=== PATIENT | male | born 1940 | race Caucasian/White ===

== ENCOUNTER 2016-10-22 21:05 | Inpatient (IN) | payer MEDICARE, OTHER ==
--- NOTE | ~2016-10-22 | HP ---
History And Physical [place] [id number] [facility] [place]. [address] NAME: TAILA VYAS : 42 STATUS : ADM IN PAT#: [id number] AGE: 76 ADM/REG DATE : 10/22/16 MR#: [id number] REPORT SERV DATE: 10/23/16 DICTATED BY: GIBSON HUTTON DATE: 10/22/16 REPORT STATUS : Draft TRANSCRIBED BY: MODL DATE: 10/22/16 DATE OF ADMISSION: 10/22/2016 CHIEF COMPLAINT: Increased confusion. HISTORY OF PRESENT ILLNESS: The patient is a 76-year-old male with past medical history of alcoholic cirrhosis, has quit alcohol over 10 years ago, had been under the care of Dr. Girma Carter, who presents after having increased confusion today per . Symptoms have been intermittent, but mild. Family knows that when these symptoms start to happen, she is supposed to give him extra lactulose. She provided these and did have resultant three to four bowel movements today. The symptoms are still not resolved. The patient was seen by Dr. Carter approximately a week ago and was told to have slightly worsening kidney numbers. The patient reports that over the last couple of days, he has also had decreased ability to urinate and has had difficulty, thought he had a urine infection. Did have mild pain with abdomen pressure. No radiating symptoms, but did have generalized weakness, malaise, increased swelling diffusely, and has had a hard time with urine output despite being compliant with his medications. The patient has not had any nausea or vomiting. Has still had good bowel movements. No wheezing. There are no worsening symptoms, but no relieving symptoms. The patient did have Chi placed in the emergency room and had almost over a liter of urine output immediately. The patient did have a fall earlier today due to increased weakness, but otherwise feels slightly better after having Chi placed. REVIEW OF SYSTEMS: GENERAL: Increase weakness, generalized, but no fever, chills, or dizziness. EYES: No eye pain or visual changes. ENT: No sore throat or sinus drainage. NEURO: No headaches, but did have mild increased confusion with mental status changes, not quite at baseline yet, but is improving. SKIN: No rashes. Does have chronic bruising. RESPIRATORY: No shortness of breath or dyspnea on exertion or cough. CV: No chest pain, palpitations, or tachycardia. GI: No nausea, vomiting, or diarrhea, but did have mild abdominal pain with hernia. : Has had difficulty urinating and retention. MUSCULOSKELETAL: No myalgias or arthralgias above baseline. ENDO: Does have fatigue, but no polyuria or polydipsia. HEME: No bleeding or bruising. IMMUNOLOGIC: No rhinorrhea. PSYCH: No anxiety, but does have confusion. PAST MEDICAL HISTORY: Alcoholic cirrhosis with portal hypertension, esophageal varices, CKD stage 3, hypertension, [id number] diabetes type 2, cholelithiasis, active tobacco use history, remote history of Marcus's gangrene. PAST SURGICAL HISTORY: Multiple surgeries for Marcus's, bilateral hernia repair surgeries. ALLERGIES: NO KNOWN DRUG ALLERGIES. History And Physical [address] [address] NAME: TALIA VYAS : 41 STATUS : ADM IN [facility]#: [id number] AGE: 76 ADM/REG DATE : 10/22/16 MR#: [id number] REPORT SERV DATE: 10/23/16 DICTATED BY: GIBSON HUTTON DATE: 10/22/16 REPORT STATUS : Draft TRANSCRIBED BY: STACEY DATE: 10/22/16 SOCIAL HISTORY: Smoker. Quit alcohol 10 years ago. No illicits. FAMILY HISTORY: Of stroke, coronary artery disease in siblings with stroke. HOME MEDICATIONS: Atenolol, vitamin D3, Lasix, Neurontin, Amaryl, lactulose, Flagyl, Protonix, Aldactone, vitamin E, magnesium, and potassium. LABORATORY DATA: UDS negative. Urinalysis, negative leukocyte esterase and nitrites. Negative protein. Ammonia 40, lactate 1.9. CT abdomen and pelvis noted to have moderate large 9.5 cm diameter umbilical hernia sac containing infiltrated fat cysts and inflammatory process within the hernia sac, although relatively broad abdominal wall fascial defect measuring 3 cm diameter. No gia incarceration pattern identified. Liver cirrhosis pattern. Cholelithiasis. Splenomegaly. Small volume abdominal ascites. Small left pleural effusion. Cardiomegaly. Mild diverticulosis pattern. Heme profile; WBC 10.3, H and H 11 and 32.5, platelets 74. INR 1.4, procalcitonin 0.11, sodium 142, potassium 4.7, chloride 105, carbon dioxide 26, BUN and creatinine 46 and 1.88, glucose 105, calcium 9.0, albumin 3, lipase 542, troponin negative. Tylenol level less than 2, salicylate 1.7, and alcohol less than 10. PHYSICAL EXAMINATION: VITAL SIGNS: The patient's blood pressure 156/60, temperature 97.8, pulse 84, respirations 13, O2 saturations 99%. GENERAL: Obese, elderly, chronically ill appearing. EYES: EOMI. ENT: Moist mucous membranes. RESPIRATORY: Clear to auscultation. No wheezes. CV: Regular rate. No rubs. Mild systolic ejection murmur. Bilateral edema. GI: Soft, but positive ascites with positive fluid wave. Does have mild tenderness to palpation with umbilical hernia, but reducible defect. Positive bowel sounds. : Chi placed with 1 L of urine output immediately. MUSCULOSKELETAL: Moves all extremities. Does have bruising on multiple skin sites. SKIN: Bruising on hands bilaterally. Otherwise, warm and dry. HEME: Bruising on hands and pressure sites. NEURO: Alert and oriented to person, place, time, and situation, but does have occasional stares and not quite at baseline per family with recollection of different events. PSYCH: Pleasant, calm, cooperative. Appropriate mood and affect. ASSESSMENT AND PLAN: 1. Acute encephalopathy, hepatic versus uremic. 2. Acute kidney injury with chronic kidney disease. 3. Diabetes type 2. 4. Hypertension. 5. Cirrhosis with caput and ascites. 6. Reflux. 7. Umbilical hernia. History And Physical [address] [address] NAME: TALIA VYAS : 42 STATUS : ADM IN [facility]#: [id number] AGE: 76 ADM/REG DATE : 10/22/16 MR#: [id number] REPORT SERV DATE: 10/23/16 DICTATED BY: GIBSON HUTTON DATE: 10/22/16 REPORT STATUS : Draft TRANSCRIBED BY: MODL DATE: 10/22/16 PLAN: 1. For acute encephalopathy, hepatic versus uremic, the patient has had multiple bowel movements with lactulose that was given at home. Ammonia at 40. We will monitor ammonia. The patient did have Chi placed with significant amount of urine retention approximately 1 L. May have uremic component, which was causing acute encephalopathy. We will need to follow. Monitor fluids, I's and O's. BUN and creatinine. We will monitor a.m. BMP and CMP. 2. CLAUDY with CKD likely secondary to urinary retention. Chi placed with greater than a liter retention. Creatinine reported to be worsening in clinic. We will try to obtain these records. May require Nephrology followup if worsening creatinine function or may require Urology evaluation if BPH symptoms of retention. May require a Chi trial. We will continue Chi overnight. Reassess in a.m. 3. Diabetes type 2. Hold Amaryl with CKD and continue sliding scale insulin. 4. Hypertension, on atenolol. Monitor. 5. Cirrhosis with caput and ascites. Check lactate, currently within normal limits. Has seen Dr. Carter last week. Continue medications and diuresis medications. 6. Reflux. PPI. 7. Umbilical hernia. Not currently incarcerated and reducible defect. Also seen on CT. Has had history of surgeries for hernias. We will need to continue to monitor. Repeat lactate in a.m. All questions were answered with the patient and family at bedside. Anticipate greater than two midnight inpatient stay. DDN/MODL Gibson Hutton MD / [id number] CC: Meme Schaeffer D.O.
--- NOTE | ~2016-10-22 | DS ---
Discharge Summary [facility] [address] [place]. [address] NAME: TALIA VYAS : 42 STATUS : DIS IN PAT#: [id number] AGE: 76 ADM/REG DATE : 10/22/16 MR#: [id number] REPORT SERV DATE: 10/28/16 DICTATED BY: KODY PERALTA DATE: 10/27/16 REPORT STATUS : Draft TRANSCRIBED BY: MODL DATE: 10/27/16 ADMISSION DATE: 10/22/2016 DISCHARGE DATE: 10/27/2016 DISCHARGE DIAGNOSES: Include: 1. Acute hepatic encephalopathy, resolving. 2. Acute kidney injury on chronic kidney disease, stage III. Most recent creatinine 2.08. 3. Alcoholic cirrhosis. 4. Chronic anemia. Most recent hemoglobin 9.3 and hematocrit 27.3. 5. Urinary tract infection, Klebsiella and Escherichia coli. 6. Acute urinary retention, that has resolved. 7. Hyperkalemia. Most recent potassium 5.3. 8. Diabetes type 2. DISCHARGE MEDICATIONS: As follows: Atenolol 25 mg daily, vitamin D3 1000 units daily, Neurontin 600 mg daily, lactulose 45 mL p.o. twice a day, Protonix 40 mg daily, Xifaxan 550 mg twice a day, Flomax 0.4 mg daily, vitamin E 400 units daily, torsemide 20 mg daily, Flagyl 250 mg twice a day, magnesium 500 mg daily, potassium supplementation one daily, and Ceftin 500 mg twice a day for two more days. HISTORY OF PRESENT ILLNESS: A very pleasant, 76-year-old male, who presented with worsening confusion and having fallen at home. Please see initial H and P of Dr. Ronni Pereyra. This patient admitted to the Hospitalist Service for further evaluation and treatment. Initially, the patient had significant urinary retention and a Chi catheter was placed with immediate relief of 1 liter of urine, and lab work was ordered and followed. Consult was placed to Dr. Girma Carter during this admission as well. HOSPITAL COURSE: I began seeing the patient on 10/23/2016 where his ammonia had began to climb up to 83, his lactulose was increased, and given his urinary retention, Flomax was added to his regimen and his Chi catheter was able to be discontinued. He was wheezing quite heavily, but DuoNeb therapy helped to alleviate this and his breathing improved dramatically. His ammonia did again climbed to 123. His lactulose was increased by Dr. Girma Carter and Xifaxan was added. His potassium was somewhat elevated and spironolactone was placed on hold and it has began to trend downward. He did have some acute kidney injury. Given the fact that his albumin is quite low, the Lasix was discontinued and he was placed on torsemide once a day instead. Physical therapy saw the patient as he began to improve in the mental status and he did quite well, able to mobilize in the room, and they recommended home health and home physical therapy. His ammonia plateaued and trended downward. His creatinine plateaued and trended downward as well, and after discussion with Dr. Girma Carter, he was felt safe for discharge home on 10/27/2016 with home health and home physical therapy. He will recheck a BMP in two to three days. He will follow up Dr. Girma Carter next week and complete antibiotics. The patient and family wanted to continue Xifaxan and will try to get this approved, so prescription was written and have instructed him to take no more Amaryl and no more Aldactone at home and to follow up with his primary care as well. [facility] will see the patient. They are in agreement with this plan going forward. Questions were answered at bedside. Discharge Summary [address] [address] NAME: TALIA VYAS : 42 STATUS : DIS IN PAT#: [id number] AGE: 76 ADM/REG DATE : 10/22/16 MR#: [id number] REPORT SERV DATE: 10/28/16 DICTATED BY: KODY PERALTA DATE: 10/27/16 REPORT STATUS : Draft TRANSCRIBED BY: MODL DATE: 10/27/16 Please note, greater 30 minutes was spent on this discharge for medication teaching, followup planning, and further disposition. ANJANA/CHAYITOL Kody Peralta NP / [id number] CC: MD Meme Santos II, D.O.
--- NOTE | ~2016-10-22 | CN ---
Consultation Report [facility] [address] [facility] [place]. [address] NAME: TALIA RICKETTS : 42 STATUS : ADM IN PAT#: [id number] AGE: 76 ADM/REG DATE : 10/22/16 MR#: [id number] REPORT SERV DATE: 10/24/16 DICTATED BY: GIRMA CARTER DATE: 10/24/16 REPORT STATUS : Draft TRANSCRIBED BY: MODL DATE: 10/24/16 CONSULTATION DATE OF CONSULTATION: 10/24/2016 REFERRING PHYSICIAN: Ronni Pereyra MD. REASON: Cirrhosis of liver and hepatic encephalopathy. HISTORY: Mr. Ricketts is a 76-year-old pleasant male, known to me for a long time. He has alcoholic cirrhosis of liver, slowly progressing. Has complications in the form of ascites, which is relatively stable and controlled on diuretics. Has chronic kidney disease due to diuretics with cirrhosis of liver though it has been stable for some time, has hepatic encephalopathy, fluctuating mental status. We have been able to manage to keep him out of the hospital for some time on lactulose only along with Flagyl only once a day. We have tried multiple times Xifaxan, was not approved by insurance. He has been rejected for patient assistance. He usually gets about three to four bowel movements daily on lactulose three to four times a day. He was brought in the hospital the day before yesterday because of altered mental status. found him next to the bathroom lying down and confused, was unable to give him any lactulose, called EMS. He has chronic encephalopathy with intermittent confusion and usually gives him extra lactulose and that helps him and that is how we have been able to manage to keep him out. He is not on any narcotics, is not on any benzodiazepines. At 76, he is definitely not a candidate for liver transplantation, and the patient and family are aware of that situation. They are also aware of prognosis. We had discussion multiple times about this situation and the patient has expressed his wishes of not to provide any prolonged life support. Since admission, he has been on lactulose, had only one bowel movement yesterday. Per daughter, he is really, really weak, not able to get up at all. She is concerned about the disposition. She wants to take him home with home health if it is possible. This morning when I came, the patient is awake. He was able to engage in conversation with me well, but on direct question, it was difficult to get details of meaningful discussion about overall situation. PAST MEDICAL HISTORY: Alcoholic cirrhosis with portal hypertension, esophageal varices, chronic kidney disease, hypertension, diabetes, cholelithiasis, hepatic encephalopathy, ascites, umbilical hernia. PAST SURGICAL HISTORY: Multiple surgeries for Marcus gangrene, bilateral hernia repair. ALLERGIES TO MEDICINE: None. Consultation Report [address] [place]. [address] NAME: TALIA RICKETTS : 42 STATUS : ADM IN PAT#: [id number] AGE: 76 ADM/REG DATE : 10/22/16 MR#: [id number] REPORT SERV DATE: 10/24/16 DICTATED BY: GIRMA CARTER DATE: 10/24/16 REPORT STATUS : Draft TRANSCRIBED BY: STACEY DATE: 10/24/16 MEDICATIONS AT HOME: Atenolol, vitamin D, Lasix, Neurontin, Amaryl, lactulose, Flagyl, Protonix, Aldactone, vitamin E, magnesium, and potassium. REVIEW OF SYSTEMS: It was very difficult to obtain review of systems, but has nausea, been restless all night. Has been having leg cramps. Memory significantly sluggish and intermittent confusion. Denies vomiting. Has generalized abdominal pain, but it is not new. It has been intermittent. Denies fever. Again, review of systems was obtained from the family. The patient was not able to engage in detailed conversation. PHYSICAL EXAMINATION: GENERAL: Well developed, well nourished, obese, awake, able to answer direct questions, not in distress. VITAL SIGNS: Blood pressure 137/61, pulse 54, respirations 18, temperature 98.4, pulse ox 96% to 99% on room air. EYES: Has pallor. Has mild icterus. Pupils equally round and reactive. NECK: Supple. No JVD. LUNGS: Bilateral decreased air entry. Bibasilar rales. Mild expiratory wheezing. HEART: S1, S2 present. No murmur appreciated. No gallop appreciated. ABDOMEN: Distended, soft. Moderate ascites. Nontender. No signs of peritonitis. Has umbilical hernia, which is reducible, noncomplicated. EXTREMITIES: Bilateral 2+ edema. Decreased peripheral pulses. No signs of DVT. NEURO: No focal deficits. Cranial nerves are grossly intact. Speech is slow, but normal. MUSCULOSKELETAL: Gait and station did not evaluate. Does not have clubbing or cyanosis. LABORATORY DATA: Sodium 142, potassium 5.1, chloride 108, bicarb 25, BUN 46, creatinine 1.75, albumin 2.6. Total bilirubin 2.2. Alkaline phosphatase and transaminases are normal. Lipase 983. Ferritin 207. Alcohol less than 10. Salicylate 1.7. Tylenol less than 2. Ammonia 123. WBC 6.7, hemoglobin 8.9, platelets 63. INR 1.4. IMPRESSION: 1. 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 Only on lactulose. Could not get Zyprexa as an outpatient. 2. Alcoholic cirrhosis of liver. MELD score is 19. Gradually getting worse. Not a liver transplant candidate. Expect to progress. 3. Chronic kidney disease, stage III. Creatinine has been stable. Contributed predominantly due to diuretics with underlying diabetes and hypertensive renal disease, though creatinine has been stable on current dose of diuretics. We were able to keep his ascites stable. Has not had paracentesis for a long time. 4. Ascites, managed by diuretics, large volume paracentesis with albumin as needed. 5. Umbilical hernia, reducible, noncomplicated. Not a candidate of surgery. 6. Debilitation due to age and progressive liver disease. 7. Type 2 diabetes. 8. Pancreatitis based on lipase. The patient is asymptomatic. Likely related to ascites. Consultation Report [address] [address] NAME: TALIA RICKETTS : 42 STATUS : ADM IN [facility]#: [id number] AGE: 76 ADM/REG DATE : 10/22/16 MR#: [id number] REPORT SERV DATE: 10/24/16 DICTATED BY: GIRMA CARTER DATE: 10/24/16 REPORT STATUS : Draft TRANSCRIBED BY: MODL DATE: 10/24/16 Maybe, loop diuretics playing the role, need to monitor. SUGGESTIONS: 1. Increase lactulose to 45 mL three times a day. 2. Add Xifaxan 550 twice a day and hold Flagyl until discharge. At the time of discharge, switched from Xifaxan to Flagyl. 3. As mentioned earlier, not a candidate for liver transplant. 4. Continue diuretics as long as creatinine is under 2. If it gets worse, we will have to hold creatinine and consider a PleurX catheter that time. 5. PT/OT evaluation and treatment. 6. Out of bed in the chair daily. 7. Discontinue Chi catheter if possible. 8. Discussed at length with the patient's daughter and about current condition and further management. Informed them he is not a liver transplant candidate. Expect to have readmission sooner or later either due to encephalopathy, fall, or even acute kidney injury or infection. Daughter agrees that if the patient comes back, we will call hospice at that time, and family also agrees about DNR status, which I have discussed with him in the office, and he mentioned that he is not in a state of making decision at this point, but with my discussion in the clinic and per family's preference, I have signed the paperwork for the DNR. 9. Supportive care. Check lipase regularly. Start him on the diet as tolerated. Call me if you have any questions or concerns. I am out of town for the weekend. I am available by the phone. My cell number is [phone]. CP/MODL Girma Carter M.D. / [id number] CC: Jarrett Carlos D.O.
[~2016-10-22 21:05] MED LIST: AMARYL1 MG PO; ATEN25 PO; AUG500 PO; CONSTULOSE PO; COQ10100 MG OR; ENULOSE PO; FLAGYL250 MG PO; KLOR-CON 1010 MEQ PO; L20 PO; L40 PO; L80 PO; LEVAQUIN5T PO; MAGNESIUM OTC PO; NEUR300 PO; NEUR600 PO; NEXIUM20 M1 PO; NICODERM C21 MG/241 TOP; OTC NASAL SPRAY; PRILOSEC40 MG PO; PRIN20 PO; PROBIOTIC PO; PROTONIX PO; SPIRO25 PO; SPIRO50 PO; TRADJENTA PO; VITAMIN D31000 UNIT PO; VITE PO
[2016-10-22 21:22] LABS: ASCORBIC ACID (UR NOT ORDER) NEG (NEG); BILIRUBIN, URINE NEGATIVE (NEG); ER URINALYSIS TAT 0 Hrs 13 Mins; KETONE, URINE NEGATIVE (NEG); LEUKOCYTE ESTERASE(NOT OR NEG (NEG); NITRITE (URINE) NEG (NEG); WBC (NOT ORDERED) (RFLEX) 1 (0-5)
[2016-10-22 21:24] LABS: BASOPHILS 0.1 %; BASOPHILS ABSOLUTE 0.01 10/3/uL (0.0-0.16); EOSINOPHILS 0.1 %; EOSINOPHILS ABSOLUTE 0.01 10/3/uL (0.0-0.53); IMMATURE GRANULOCYTES 0.3 %; IMMATURE GRANULOCYTES ABSOLUTE 0.03 10/3/uL (0.0-0.11); LYMPHOCYTES 7.1 %; LYMPHOCYTES ABSOLUTE 0.73 10/3/uL (0.67-4.30); MEAN CORPUS HGB CONC 33.8 g/dL (32.0-36.0); MEAN CORPUSCULAR HEMOGLOB 31.5 pg (26.0-34.0); MEAN CORPUSCULAR VOLUME 93.1 fL (80-100); MEAN PLATELET VOLUME 10.7 fL (9.2-13.0); MONOCYTES 7.4 %; MONOCYTES ABSOLUTE 0.76 10/3/uL (0.21-1.20); NEUTROPHILS ABSOLUTE 8.79 10/3/uL (2.02-8.40); PLATELET COUNT 74 10/3/uL (150-400); RBC DISTRIBUTION WIDTH 15.7 % (12.0-16.0)
[2016-10-22 21:26] LABS: HEMATOCRIT 32.5 % (40.0-51.0); MANUAL DIFF NO %; RED CELL COUNT 3.49 10/6/uL (4.7-6.1); WHITE BLOOD CELLS 10.3 10/3/uL (4.5-10.5)
[2016-10-22 21:28] LABS: INTERNATIONAL NORMAL RATI 1.4 UNITS (-); PROTIME (NOT ORD) 17.4 SEC (12.0-14.5)
[2016-10-22 21:33] LABS: AMPHETAMINES (NOT ORD) NEG (NEG); BARBITURATES (NOT ORDERED NEG (NEG); BENZODIAZEPINES (NOT ORD) NEG (NEG); CANNABINOIDS (THC) NEG (NEG); COCAINE (NOT ORDERED) NEG (NEG); OPIATES NEG (NEG); PHENCYCLIDINE(PCP) NEG (NEG); TRICYCLICS NEG (NEG)
[2016-10-22 21:35] LABS: LACTATE 1.9 MMOL/L (0.3-2.4)
[2016-10-22 21:35] LABS: CHEST PAIN PROFILE TAT 0 Hrs 26 Mins; CHLORIDE, SERUM 105 MMOL/L (96-112); CO2 (CARBON DIOXIDE) 26 MMOL/L (24-34); CREATININE 1.88 MG/DL (0.70-1.30); GFR AFRICAN AMERICAN 40 ML/MIN (>=60); GFR NON AFRICAN AMERICAN 34 ML/MIN (>=60); POTASSIUM, SERUM 4.7 MMOL/L (3.5-5.3); SGOT(AST) 29 U/L (5-40); SGPT(ALT) 34 U/L (5-65); SODIUM, SERUM 142 MMOL/L (135-148); TOTAL BILIRUBIN 2.2 MG/DL (0-1.2); TROPONIN I <0.02 NG/ML (<0.05)
[2016-10-22 21:36] LABS: ALKALINE PHOSPHATASE 120 U/L (45-117); BUN (BLOOD UREA NITROGEN) 46 MG/DL (6-23); DIRECT BILIRUBIN 0.9 MG/DL (0.0-0.4); GLUCOSE, SERUM 105 MG/DL (60-99); INDIRECT BILIRUBIN(NOT ORDER) 1.3 MG/DL (0.1-0.9); TOTAL PROTEIN 6.9 G/DL (6.0-8.5)
[2016-10-22 21:37] LABS: ACETAMINOPHEN LEVEL (TYLENOL) < 2.0 MCG/ML (10.0-20.0); ALCOHOL < 10 MG/DL (0); SALICYLATE 1.7 MG/DL (-)
[2016-10-22 22:03] LABS: ER DIFF TAT 0 Hrs 54 Mins; LYMPHOCYTES 6 %; LYMPHOCYTES ABSOLUTE (CALC) 0.62 10/3/uL (0.67-4.30); MONOCYTES 2 %; MONOCYTES ABSOLUTE (CALC) 0.21 10/3/uL (0.21-1.20); NEUTROPHILS ABSOLUTE (CALC) 9.48 10/3/uL (2.02-8.40); SEGMENTED NEUTROPHIL (0) 92 %; TOTAL NUCLEATED CELLS 100
[2016-10-22 22:07] LABS: PLATELET ESTIMATE DEC (ADEQUATE)
[2016-10-22] MEDS ORDERED: ATEN25 PO (22:18)
[2016-10-22] MEDS ORDERED: AMARYL1 MG PO (22:20)
[2016-10-22] MEDS ORDERED: CONSTULOSE PO (22:20)
[2016-10-22] MEDS ORDERED: L40 PO (22:21)
[2016-10-22] MEDS ORDERED: SPIR100 PO (22:21)
[2016-10-22] MEDS ORDERED: FLAGYL250 MG PO (22:21)
[2016-10-22] MEDS ORDERED: MAGNESIUM 500 MG PO (22:23)
[2016-10-22] MEDS ORDERED: NEUR600 PO (22:23)
[2016-10-22] MEDS ORDERED: PROTONIX PO (22:23)
[2016-10-22] MEDS ORDERED: VITE PO (22:24)
[2016-10-22] MEDS ORDERED: POTASSIUM OTC PO (22:24)
[2016-10-22] MEDS ORDERED: VITAMIN D31000 UNIT PO (22:24)
[2016-10-22 22:27] LABS: PROCALCITONIN 0.11 ng/mL (<0.5)
[2016-10-23 07:11] LABS: BASOPHILS 0 %; EOSINOPHILS 0.1 %; EOSINOPHILS ABSOLUTE 0.01 10/3/uL (0.0-0.53); HEMOGLOBIN 9.4 g/dL (13.6-17.8); IMMATURE GRANULOCYTES 0.3 %; IMMATURE GRANULOCYTES ABSOLUTE 0.03 10/3/uL (0.0-0.11); LYMPHOCYTES 5.4 %; LYMPHOCYTES ABSOLUTE 0.52 10/3/uL (0.67-4.30); MEAN CORPUS HGB CONC 33.6 g/dL (32.0-36.0); MEAN CORPUSCULAR HEMOGLOB 31.1 pg (26.0-34.0); MEAN CORPUSCULAR VOLUME 92.7 fL (80-100); MEAN PLATELET VOLUME 10.5 fL (9.2-13.0); MONOCYTES ABSOLUTE 0.86 10/3/uL (0.21-1.20); NEUTROPHILS 85.2 %; NEUTROPHILS ABSOLUTE 8.16 10/3/uL (2.02-8.40); PLATELET COUNT 65 10/3/uL (150-400); RBC DISTRIBUTION WIDTH 15.9 % (12.0-16.0); RED CELL COUNT 3.02 10/6/uL (4.7-6.1); WHITE BLOOD CELLS 9.6 10/3/uL (4.5-10.5)
[2016-10-23 07:12] LABS: MANUAL DIFF NO %
[2016-10-23 07:27] LABS: A/G RATIO 0.7 (0.7-1.9); ALBUMIN 2.6 G/DL (3.5-5.0); ALKALINE PHOSPHATASE 98 U/L (45-117); BUN (BLOOD UREA NITROGEN) 46 MG/DL (6-23); CALCIUM, SERUM 8.9 MG/DL (8.5-10.4); CHLORIDE, SERUM 108 MMOL/L (96-112); CO2 (CARBON DIOXIDE) 25 MMOL/L (24-34); CREATININE 1.75 MG/DL (0.70-1.30); GFR AFRICAN AMERICAN 43 ML/MIN (>=60); GFR NON AFRICAN AMERICAN 37 ML/MIN (>=60); GLOBULIN 3.5 G/DL (2.5-4.1); GLUCOSE, SERUM 89 MG/DL (60-99); POTASSIUM, SERUM 5.1 MMOL/L (3.5-5.3); SGOT(AST) 26 U/L (5-40); SGPT(ALT) 30 U/L (5-65); SODIUM, SERUM 142 MMOL/L (135-148); TOTAL BILIRUBIN 2.2 MG/DL (0-1.2); TOTAL PROTEIN 6.1 G/DL (6.0-8.5)
[2016-10-23 07:40] LABS: PLATELET ESTIMATE DEC (ADEQUATE); POLYCHROMASIA 1+ (2-5/OIF) (0-1/OIF)
[2016-10-23 17:21] LABS: WBC (NOT ORDERED) (RFLEX) 35 (0-5)
[2016-10-23 17:22] LABS: BILIRUBIN, URINE NEGATIVE (NEG); KETONE, URINE NEGATIVE (NEG)
[2016-10-23 17:23] LABS: ASCORBIC ACID (UR NOT ORDER) 20 (NEG); LEUKOCYTE ESTERASE(NOT OR MOD (NEG)
[2016-10-24 06:02] LABS: BASOPHILS 0 %; EOSINOPHILS 0.3 %; EOSINOPHILS ABSOLUTE 0.02 10/3/uL (0.0-0.53); HEMATOCRIT 26.6 % (40.0-51.0); HEMOGLOBIN 8.9 g/dL (13.6-17.8); IMMATURE GRANULOCYTES 0.3 %; IMMATURE GRANULOCYTES ABSOLUTE 0.02 10/3/uL (0.0-0.11); LYMPHOCYTES 6.3 %; LYMPHOCYTES ABSOLUTE 0.42 10/3/uL (0.67-4.30); MEAN CORPUS HGB CONC 33.5 g/dL (32.0-36.0); MEAN CORPUSCULAR HEMOGLOB 31.3 pg (26.0-34.0); MEAN CORPUSCULAR VOLUME 93.7 fL (80-100); MEAN PLATELET VOLUME 10.9 fL (9.2-13.0); MONOCYTES 12.3 %; MONOCYTES ABSOLUTE 0.82 10/3/uL (0.21-1.20); NEUTROPHILS 80.8 %; NEUTROPHILS ABSOLUTE 5.38 10/3/uL (2.02-8.40); PLATELET COUNT 63 10/3/uL (150-400); RBC DISTRIBUTION WIDTH 15.7 % (12.0-16.0); RED CELL COUNT 2.84 10/6/uL (4.7-6.1); WHITE BLOOD CELLS 6.7 10/3/uL (4.5-10.5)
[2016-10-24 06:04] LABS: MANUAL DIFF NO %
[2016-10-24 06:23] LABS: A/G RATIO 0.7 (0.7-1.9); ALBUMIN 2.4 G/DL (3.5-5.0); ALKALINE PHOSPHATASE 91 U/L (45-117); CALCIUM, SERUM 8.9 MG/DL (8.5-10.4); CHLORIDE, SERUM 106 MMOL/L (96-112); CO2 (CARBON DIOXIDE) 22 MMOL/L (24-34); CREATININE 2.09 MG/DL (0.70-1.30); GFR AFRICAN AMERICAN 35 ML/MIN (>=60); GFR NON AFRICAN AMERICAN 30 ML/MIN (>=60); GLOBULIN 3.4 G/DL (2.5-4.1); POTASSIUM, SERUM 5.6 MMOL/L (3.5-5.3); SGOT(AST) 22 U/L (5-40); SGPT(ALT) 29 U/L (5-65); SODIUM, SERUM 140 MMOL/L (135-148); TOTAL PROTEIN 5.8 G/DL (6.0-8.5)
[2016-10-24 06:27] LABS: BUN (BLOOD UREA NITROGEN) 53 MG/DL (6-23); GLUCOSE, SERUM 155 MG/DL (60-99); TOTAL BILIRUBIN 1.7 MG/DL (0-1.2)
[2016-10-24 07:17] LABS: PLATELET ESTIMATE DEC (ADEQUATE)
[2016-10-24 07:18] LABS: RBC MORPHOLOGY NORM (NORMAL)
[2016-10-25 07:21] LABS: BASOPHILS 0 %; EOSINOPHILS 0.2 %; EOSINOPHILS ABSOLUTE 0.01 10/3/uL (0.0-0.53); HEMATOCRIT 25.2 % (40.0-51.0); HEMOGLOBIN 8.5 g/dL (13.6-17.8); IMMATURE GRANULOCYTES 0.2 %; IMMATURE GRANULOCYTES ABSOLUTE 0.01 10/3/uL (0.0-0.11); LYMPHOCYTES 10.9 %; LYMPHOCYTES ABSOLUTE 0.54 10/3/uL (0.67-4.30); MEAN CORPUS HGB CONC 33.7 g/dL (32.0-36.0); MEAN CORPUSCULAR HEMOGLOB 31.6 pg (26.0-34.0); MEAN CORPUSCULAR VOLUME 93.7 fL (80-100); MEAN PLATELET VOLUME 10.7 fL (9.2-13.0); MONOCYTES 7.7 %; MONOCYTES ABSOLUTE 0.38 10/3/uL (0.21-1.20); PLATELET COUNT 61 10/3/uL (150-400); RBC DISTRIBUTION WIDTH 15.6 % (12.0-16.0); RED CELL COUNT 2.69 10/6/uL (4.7-6.1); WHITE BLOOD CELLS 4.9 10/3/uL (4.5-10.5)
[2016-10-25 07:27] LABS: MANUAL DIFF NO %
[2016-10-25 07:37] LABS: A/G RATIO 0.7 (0.7-1.9); ALBUMIN 2.3 G/DL (3.5-5.0); ALKALINE PHOSPHATASE 89 U/L (45-117); BUN (BLOOD UREA NITROGEN) 53 MG/DL (6-23); CALCIUM, SERUM 8.5 MG/DL (8.5-10.4); CHLORIDE, SERUM 102 MMOL/L (96-112); CO2 (CARBON DIOXIDE) 24 MMOL/L (24-34); CREATININE 2.27 MG/DL (0.70-1.30); GFR AFRICAN AMERICAN 32 ML/MIN (>=60); GFR NON AFRICAN AMERICAN 27 ML/MIN (>=60); GLOBULIN 3.4 G/DL (2.5-4.1); GLUCOSE, SERUM 125 MG/DL (60-99); POTASSIUM, SERUM 5.5 MMOL/L (3.5-5.3); SGOT(AST) 20 U/L (5-40); SGPT(ALT) 26 U/L (5-65); SODIUM, SERUM 138 MMOL/L (135-148); TOTAL BILIRUBIN 1.5 MG/DL (0-1.2); TOTAL PROTEIN 5.7 G/DL (6.0-8.5)
[2016-10-25 07:43] LABS: PLATELET ESTIMATE DEC (ADEQUATE); RBC MORPHOLOGY NORM (NORMAL)
[2016-10-25 10:29] LABS: CREATININE, URINE 68.8 MG/DL
[2016-10-26 07:29] LABS: BASOPHILS 0 %; EOSINOPHILS 0.6 %; EOSINOPHILS ABSOLUTE 0.03 10/3/uL (0.0-0.53); HEMATOCRIT 27.6 % (40.0-51.0); HEMOGLOBIN 9.3 g/dL (13.6-17.8); IMMATURE GRANULOCYTES 0.6 %; IMMATURE GRANULOCYTES ABSOLUTE 0.03 10/3/uL (0.0-0.11); LYMPHOCYTES 9.4 %; MEAN CORPUS HGB CONC 33.7 g/dL (32.0-36.0); MEAN CORPUSCULAR HEMOGLOB 31.7 pg (26.0-34.0); MEAN CORPUSCULAR VOLUME 94.2 fL (80-100); MEAN PLATELET VOLUME 11.1 fL (9.2-13.0); MONOCYTES 9.2 %; MONOCYTES ABSOLUTE 0.49 10/3/uL (0.21-1.20); NEUTROPHILS 80.2 %; NEUTROPHILS ABSOLUTE 4.27 10/3/uL (2.02-8.40); PLATELET COUNT 67 10/3/uL (150-400); RBC DISTRIBUTION WIDTH 15.3 % (12.0-16.0); RED CELL COUNT 2.93 10/6/uL (4.7-6.1); WHITE BLOOD CELLS 5.3 10/3/uL (4.5-10.5)
[2016-10-26 07:32] LABS: MANUAL DIFF NO %
[2016-10-26 07:48] LABS: A/G RATIO 0.7 (0.7-1.9); ALBUMIN 2.5 G/DL (3.5-5.0); ALKALINE PHOSPHATASE 101 U/L (45-117); BUN (BLOOD UREA NITROGEN) 55 MG/DL (6-23); CALCIUM, SERUM 8.9 MG/DL (8.5-10.4); CHLORIDE, SERUM 101 MMOL/L (96-112); CO2 (CARBON DIOXIDE) 24 MMOL/L (24-34); CREATININE 2.16 MG/DL (0.70-1.30); GFR AFRICAN AMERICAN 33 ML/MIN (>=60); GFR NON AFRICAN AMERICAN 29 ML/MIN (>=60); GLOBULIN 3.7 G/DL (2.5-4.1); GLUCOSE, SERUM 134 MG/DL (60-99); POTASSIUM, SERUM 5.4 MMOL/L (3.5-5.3); SGOT(AST) 24 U/L (5-40); SGPT(ALT) 27 U/L (5-65); SODIUM, SERUM 135 MMOL/L (135-148); TOTAL PROTEIN 6.2 G/DL (6.0-8.5)
[2016-10-26 07:49] LABS: PLATELET ESTIMATE DEC (ADEQUATE); RBC MORPHOLOGY NORM (NORMAL)
[2016-10-27 06:43] LABS: BASOPHILS 0 %; EOSINOPHILS 0.9 %; EOSINOPHILS ABSOLUTE 0.05 10/3/uL (0.0-0.53); HEMATOCRIT 27.3 % (40.0-51.0); HEMOGLOBIN 9.3 g/dL (13.6-17.8); IMMATURE GRANULOCYTES 0.5 %; IMMATURE GRANULOCYTES ABSOLUTE 0.03 10/3/uL (0.0-0.11); LYMPHOCYTES 8.2 %; LYMPHOCYTES ABSOLUTE 0.47 10/3/uL (0.67-4.30); MEAN CORPUS HGB CONC 34.1 g/dL (32.0-36.0); MEAN CORPUSCULAR HEMOGLOB 31.5 pg (26.0-34.0); MEAN CORPUSCULAR VOLUME 92.5 fL (80-100); MONOCYTES 8.9 %; MONOCYTES ABSOLUTE 0.51 10/3/uL (0.21-1.20); NEUTROPHILS 81.5 %; NEUTROPHILS ABSOLUTE 4.65 10/3/uL (2.02-8.40); PLATELET COUNT 63 10/3/uL (150-400); RBC DISTRIBUTION WIDTH 15.4 % (12.0-16.0); RED CELL COUNT 2.95 10/6/uL (4.7-6.1); WHITE BLOOD CELLS 5.7 10/3/uL (4.5-10.5)
[2016-10-27 06:44] LABS: MANUAL DIFF NO %
[2016-10-27 06:55] LABS: BUN (BLOOD UREA NITROGEN) 52 MG/DL (6-23); CALCIUM, SERUM 9.2 MG/DL (8.5-10.4); CHLORIDE, SERUM 99 MMOL/L (96-112); CO2 (CARBON DIOXIDE) 23 MMOL/L (24-34); CREATININE 2.08 MG/DL (0.70-1.30); GFR AFRICAN AMERICAN 35 ML/MIN (>=60); GFR NON AFRICAN AMERICAN 30 ML/MIN (>=60); GLUCOSE, SERUM 143 MG/DL (60-99); POTASSIUM, SERUM 5.3 MMOL/L (3.5-5.3); SODIUM, SERUM 132 MMOL/L (135-148)
[2016-10-27 07:07] LABS: PLATELET ESTIMATE DEC (ADEQUATE); RBC MORPHOLOGY NORM (NORMAL)
[2016-10-27] MEDS ORDERED: FLOMAX4 PO (11:14)
[2016-10-27] MEDS ORDERED: DEMA20 PO (11:15)
[2016-10-27] MEDS ORDERED: XIFAXAN550 MG PO (11:15)
[2016-10-27] MEDS ORDERED: CEFT5 PO (11:16)
[2016-10-27] MEDS ORDERED: CONSTULOSE PO (16:20)
[2016-10-27] MEDS ORDERED: FLAGYL250 MG PO (16:25)
== END 2016-10-27 17:28 | disposition home health service (06) | DRG 442 ==
LOC: ER 21:05 → 6NO 23:55
PROVIDERS: Internal Medicine; Internal Medicine Hepatology; Nurse Practitioner; Nurse Practitioner Family; Student in an Organized Health Care Education/Training Program
DX: K72.00 Acute and subacute hepatic failure without coma (principal); N17.9 Acute kidney failure, unspecified; E11.22 Type 2 diabetes mellitus with diabetic chronic kidney disease; E87.5 Hyperkalemia; K76.6 Portal hypertension; N39.0 Urinary tract infection, site not specified; N18.3 Chronic kidney disease, stage 3 (moderate); K70.31 Alcoholic cirrhosis of liver with ascites; D64.9 Anemia, unspecified; B96.1 Klebsiella pneumoniae [K. pneumoniae] as the cause of diseases classified elsewhere; F17.210 Nicotine dependence, cigarettes, uncomplicated; I12.9 Hypertensive chronic kidney disease with stage 1 through stage 4 chronic kidney disease, or unspecified chronic kidney disease; K42.9 Umbilical hernia without obstruction or gangrene; B96.20 Unspecified Escherichia coli [E. coli] as the cause of diseases classified elsewhere; R33.9 Retention of urine, unspecified; W19.XXXA Unspecified fall, initial encounter; Y92.019 Unspecified place in single-family (private) house as the place of occurrence of the external cause
CPT/HCPCS: 71010; 74176; 80048; 80053; 80076; 80305; 80307; 81001; 82140; 82272; 82570; 82962; 83605; 83690; 83735; 84132; 84145; 84300; 84443; 84484; 85025; 85610; 85730; 87040; 87077; 87086; 87186; 94640; 97162-GP; 99285; A9270-GY; G8978-CK-GP; G8979-CK-GP; J2405

== ENCOUNTER 2016-10-31 23:55 | Inpatient (IN) | payer MEDICARE, OTHER ==
[2016-10-30 22:22] LABS: CALCIUM, SERUM 8.5 MG/DL (8.5-10.4); CHLORIDE, SERUM 99 MMOL/L (96-112); CO2 (CARBON DIOXIDE) 26 MMOL/L (24-34); GFR AFRICAN AMERICAN 25 ML/MIN (>=60); GFR NON AFRICAN AMERICAN 22 ML/MIN (>=60); GLUCOSE, SERUM 136 MG/DL (60-99); SODIUM, SERUM 136 MMOL/L (135-148)
[2016-10-30 22:23] LABS: BUN (BLOOD UREA NITROGEN) 75 MG/DL (6-23); CREATININE 2.72 MG/DL (0.70-1.30)
--- NOTE | ~2016-10-31 | HP ---
History And Physical [place] [id number] [place]. [address] NAME: TALIA RICKETTS : 41 STATUS : ADM IN PAT#: [id number] AGE: 76 ADM/REG DATE : 11/01/16 MR#: [id number] REPORT SERV DATE: 11/01/16 DICTATED BY: TALIA CHEN DATE: 11/01/16 REPORT STATUS : Draft TRANSCRIBED BY: MODL DATE: 11/01/16 DATE OF ADMISSION: 10/31/2016 POINT OF ENTRY: [facility] Emergency Department. PRIMARY LOGISTICS SUPPLY OFFICER: Girma Carter M.D. CHIEF COMPLAINT: Altered mental status, weakness, sedation, lethargy. HISTORY OF PRESENT ILLNESS: Mr. Ricketts is a 76-year-old, gentleman with a history of alcoholic cirrhosis with hepatic encephalopathy, portal hypertension, esophageal varices as well as a history of hepatic ascites, who was brought to the emergency room today for altered mental status, sedation, lethargy as well as weakness. The patient was admitted to the Hospitalist Service from 10/22/2016 through 10/27/2016 for hepatic encephalopathy, his acute kidney injury on chronic kidney stage 3, had a urinary tract infection. At time of discharge, family states that they still felt that he was not doing well enough for discharge to home, but in terms of mental status, he was awake, alert, and communicative. Upon discharge to home, family states that he completed his course of antibiotics for his urinary tract infection, has been compliant with his lactulose therapy, and having regular bowel movements. Unfortunately, they were unable to get the Xifaxan covered by insurance and therefore, he has not been on any Xifaxan since discharge on 10/27/2016. Family states he was doing well up until this evening. He fell sleep early in the afternoon and then awoke at approximately 8 o'clock when they noted that he was altered, confused, very weak, and actually stumbled and fell due to the weakness. He was so weak that he required assistance of multiple family members to get him up off the ground. Initial evaluation in the emergency department notable for vital signs that are unremarkable. The patient is noted to be profoundly sedated and lethargic with a decreased level of consciousness. ABG is unremarkable. CT scan of the brain was unremarkable. Ammonia level was noted to be 242. He was noted to have some acute kidney injury on chronic kidney stage 4 with a BUN and creatinine that are above his recent baseline. He was started on some IV fluids and admitted to the Hospitalist Service. COMPREHENSIVE REVIEW OF SYSTEMS: Otherwise negative unless listed in history of present illness. PREVIOUS MEDICAL HISTORY: 1. Alcoholic cirrhosis, complicated by portal hypertension with esophageal varices and ascites. 2. Auc-gqorbkp-uicpyaczz diabetes mellitus type 2. 3. Hypertension. 4. 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 Baseline creatinine approximately 2. 5. Umbilical hernia. 6. Cholelithiasis. 7. History of Marcus gangrene. History And Physical [address] [address] NAME: TALIA RICKETTS : 41 STATUS : ADM IN [facility]#: [id number] AGE: 76 ADM/REG DATE : 11/01/16 MR#: [id number] REPORT SERV DATE: 11/01/16 DICTATED BY: TALIA CHEN DATE: 11/01/16 REPORT STATUS : Draft TRANSCRIBED BY: STACEY DATE: 11/01/16 SURGICAL HISTORY: 1. Bilateral hernia repair. 2. Marcus gangrene resection and surgery. ALLERGIES: NO KNOWN DRUG ALLERGIES. HOME MEDICATIONS: 1. Atenolol 25 mg daily. 2. Vitamin D 1000 units daily. 3. Gabapentin 600 mg daily. 4. Lactulose 45 mL b.i.d. 5. Flagyl 250 mg b.i.d. 6. Protonix 40 mg daily. 7. Xifaxan 550 mg b.i.d. 8. Flomax 0.4 mg daily. 9. Vitamin E 400 units daily. 10.Demadex 20 mg daily. 11.Magnesium aebd-qbs-oqwfxhf 5 mg daily. SOCIAL HISTORY: He is a former alcoholic, has been quit for about 10 years. Does smoke cigarettes. Denies illicits. FAMILY MEDICAL HISTORY: Notable for mother with history of stroke, father with coronary artery disease, siblings with stroke. LABS AND IMAGIN. White count 6.5, hemoglobin is 9.7, hematocrit is 28.0, platelets 64, INR 1.6. 2. Sodium is 135, potassium 5.5, chloride 99, carbon dioxide 25, BUN is 84, creatinine 2.75, glucose is 161, calcium is 8.8, magnesium is 2.2, protein is 6.2, albumin is 2.6, bilirubin is 1.8, ALT is 32, AST is 31, alkaline phosphatase is 108. 3. Troponin level is less than 0.02. 4. Ammonia level is 242. 5. ABG; pH is 7.50, pCO2 is 30, PO2 is 101, bicarb is 23, saturating 98% on room air. 6. Chest x-ray per review shows no acute cardiopulmonary abnormality. 7. CT scan of the brain shows no acute intracranial hemorrhage, midline shift, or hydrocephalus. 8. EKG per my review shows normal sinus rhythm with some PACs, otherwise no acute T-wave changes secondary to hyperkalemia. PHYSICAL EXAMINATION: VITAL SIGNS: Temperature is 98.6 degrees Fahrenheit, pulse is 72, respirations 24, saturating 96% on room air, blood pressure is 119/35. GENERAL: The patient is a morbidly obese, chronically ill-appearing, elderly male who appears older than his stated age. He currently is sedated and lethargic, and will awaken occasionally to verbal stimuli. HEENT: Atraumatic and normocephalic. Dry mucous membranes. Pupils are equal, round, and History And Physical [address] [address] NAME: TALIA RICKETTS : 41 STATUS : ADM IN [facility]#: [id number] AGE: 76 ADM/REG DATE : 11/01/16 MR#: [id number] REPORT SERV DATE: 11/01/16 DICTATED BY: TALIA CHEN DATE: 11/01/16 REPORT STATUS : Draft TRANSCRIBED BY: MODL DATE: 11/01/16 reactive. He does have some mild scleral icterus. NECK: No jugular venous distention. No carotid bruits. CARDIAC: Regular rate and rhythm. No murmurs, rubs, or gallops. Normal S1, S2. LUNGS: Decreased breath sounds at the bases as well as poor inspiratory effort, but no wheezes, rhonchi, or crackles. ABDOMEN: Obese, soft, with mild ascites as well as an umbilical hernia. He is mildly tender to palpation over the left lower greater than left upper quadrant. EXTREMITIES: Warm and perfused with no cyanosis or clubbing. Trace lower extremity edema. SKIN: Warm and dry. PSYCH: Sedated and lethargic. NEURO: Sedated and lethargic. Will scream out to painful stimuli, but is unable to communicate with my neuro exam other than that. ASSESSMENT AND PLAN: Mr. Ricketts is a 76-year-old, gentleman with a history of alcoholic cirrhosis and history of hepatic encephalopathy, who is brought back to the emergency room today with reports of altered mental status, sedation, lethargy as well as weakness and mechanical fall at home and found to have evidence of severe hepatic encephalopathy with ammonia level of 242. PROBLEM LIST: 1. Severe hepatic encephalopathy. 2. Acute kidney injury on chronic kidney stage 3 to stage 4. 3. Urinary retention. 4. Hyperkalemia. 5. Alcoholic cirrhosis. 6. Weakness. PLAN: 1. Severe hepatic encephalopathy. At this point, the patient's mental status will not allow for him to safely take lactulose and Xifaxan orally in an effort to lower his ammonia level. I had a gia discussion with his daughter as well as who are at bedside about his grim prognosis as well as goals of care. They confirmed that the patient wished to be do not resuscitate/do not intubate; however, they did elect to attempt NG tube placement for enteral lactulose and Xifaxan administration in an effort to bring his ammonia level down. As such, we will place NG tube, start him on high- dose lactulose as well as Xifaxan; and we will consult Dr. Girma Carter for assistance. Of note, he has been previously documented as not a transplantation candidate. 2. Acute kidney injury on chronic kidney stage 3 to 4. I suspect that some of the patient's encephalopathy is due to uremia as well. We will hold the patient's Demadex, provide IV fluid hydration. 3. Urinary retention. We will place a Chi catheter. 4. Abdominal pain. The patient did have some mild abdominal pain on examination, despite his profound encephalopathy. We will check a CT scan of the abdomen and pelvis. 5. History of urinary tract infection. We will recheck a urinalysis to ensure the patient does have recurrent urinary tract infection given his urinary retention. 6. Hyperkalemia. Provide IV fluid hydration. We will temporize with 1 g of IV calcium gluconate. Per review of Gen[employer], it appears that he has some chronic low level History And Physical [address] [place]. [address] NAME: TALIA RICKETTS : 41 STATUS : ADM IN PAT#: [id number] AGE: 76 ADM/REG DATE : 11/01/16 MR#: [id number] REPORT SERV DATE: 11/01/16 DICTATED BY: TALIA CHEN DATE: 11/01/16 REPORT STATUS : Draft TRANSCRIBED BY: MODL DATE: 11/01/16 hyperkalemia, likely secondary to CKD as well as renal tubular acidosis. We will continue to monitor. Place the patient on cardiac telemetry monitoring. 7. Weakness and mechanical fall. Suspect this is all due to the patient's hepatic encephalopathy as well as acute kidney injury. CT scan of the brain was unremarkable. ABG was well compensated. 8. DVT prophylaxis. TEDs and SCDs given risk for bleeding given his coagulopathy as well as thrombocytopenia. 9. Code status. The patient wishes to be DNR/DNI. This is confirmed with family members at bedside. At this time, they do not wish to pursue comfort measures, but rather at least trial NG tube placement with aggressive lactulose and Xifaxan therapy to see if the patient's mental status will improve. Again, a gia discussion was had with family regarding grim prognosis, and they seem to be understanding of this difficult situation. LAMBERT/STACEY Talia Chen MD / [id number] CC: Dominguez Rodriguez M.D.
--- NOTE | ~2016-10-31 | DS ---
Discharge Summary [facility] [address] [place]. [address] NAME: TALIA VYAS : 42 STATUS : DIS IN PAT#: [id number] AGE: 76 ADM/REG DATE : 11/01/16 MR#: [id number] REPORT SERV DATE: 11/03/16 DICTATED BY: GABBY LANGFORD DATE: 11/02/16 REPORT STATUS : Draft TRANSCRIBED BY: MODL DATE: 11/02/16 ADMISSION DATE: 11/01/2016 DISCHARGE DATE: 11/01/2016 DIAGNOSES OF DISCHARGE: 1. End-stage liver disease. 2. Significant hepatic encephalopathy. 3. Fwqit-or-oknhyfx kidney disease. 4. History of alcoholic cirrhosis, complicated by portal hypertension, esophageal varices and ascites. 5. Sso-kpgbvwh-ldzuuukdj diabetes. 6. Hypertension. 7. Umbilical hernia. 8. History of Marcus gangrene. 9. Cholelithiasis. CONSULTANTS ON THE CASE: None. PROCEDURE DONE DURING THIS HOSPITALIZATION: None. TEST DONE DURING THIS HOSPITALIZATION: Include CT scan of the brain without contrast performed on 11/01/2016 showing atrophic changes, but no acute abnormalities. The patient underwent chest x-ray, portable, on 11/01/2016 with mild vascular prominence, otherwise negative. Also, the patient underwent UA that has been negative. HOSPITAL COURSE: This is a 76-year-old gentleman, who has history of alcoholic cirrhosis with hepatic encephalopathy, portal hypertension, esophageal varices, progressive acute-on- chronic kidney disease, who has been admitted recently to Hospitalist Service with a hepatic encephalopathy and urinary tract infection. The patient upon discharge home has been getting progressively worse and the patient has been presenting again to [facility] on 11/01/2016 with significant altered mental status, weakness, and lethargy. For further details, please see history and physical exam of Dr. Talia Morales. It is important to note that the patient has been seen on prior admission by Dr. Girma Carter from Liver Service due to the progressiveness of his cirrhosis of the liver. The patient has been, however, declining over the last week and the patient has been brought again to [facility] with significant encephalopathy and unresponsiveness. Obviously, the patient has not been considered a candidate for any liver transplantation and has been aware that the patient will have a progressive poor prognosis since his disease is going to progress. The patient's MELD score was about 19. The patient has been admitted to Hospitalist Service. An NG tube has been placed. He has been placed on lactulose as well and we have discussed extensively with the patient that a hospice consult with palliative care would be appropriate at this time. The patient's family requested [facility] and he has been evaluated and transferred to inpatient [facility] on 11/01/2016. The patient medications at discharge would include: Tenormin 25 mg p.o. daily, vitamin D 1000 p.o. daily, NovoLog sliding scale, lactulose 45 mL p.o. q.6 hours, magnesium oxide 400 Discharge Summary [address] [address] NAME: TALIA VYAS : 41 STATUS : DIS IN PAT#: [id number] AGE: 76 ADM/REG DATE : 11/01/16 MR#: [id number] REPORT SERV DATE: 11/03/16 DICTATED BY: GABBY LANGFORD DATE: 11/02/16 REPORT STATUS : Draft TRANSCRIBED BY: MODCassandra DATE: 11/02/16 p.o. daily, Flagyl 500 IV q.8 hours, Rocephin 1 g IV daily, Protonix 40 mg IV daily, Xifaxan 550 mg twice a day, Flomax 0.4 p.o. daily, and vitamin E 400 units daily. The patient will be taken care by [facility]. It is also important to note that the patient has been on DNR according to patient wishes, prior stated. SANJEEV/CHAYITOL Gabby Langford M.D. / [id number] CC: Jarrett Marcus D.O. [facility]
[~2016-10-31 23:55] MED LIST changes: +CEFT5 PO; +DEMA20 PO; +FLOMAX4 PO; +MAGNESIUM 500 MG PO; +POTASSIUM OTC PO; +SPIR100 PO; +XIFAXAN550 MG PO
[2016-11-01 01:34] LABS: BASOPHILS 0 %; EOSINOPHILS 0.2 %; EOSINOPHILS ABSOLUTE 0.01 10/3/uL (0.0-0.53); ER CBC TAT 0 Hrs 09 Mins; HEMOGLOBIN 9.7 g/dL (13.6-17.8); IMMATURE GRANULOCYTES 0.2 %; IMMATURE GRANULOCYTES ABSOLUTE 0.01 10/3/uL (0.0-0.11); LYMPHOCYTES 10.2 %; LYMPHOCYTES ABSOLUTE 0.67 10/3/uL (0.67-4.30); MEAN CORPUS HGB CONC 34.6 g/dL (32.0-36.0); MEAN CORPUSCULAR HEMOGLOB 31.5 pg (26.0-34.0); MEAN CORPUSCULAR VOLUME 90.9 fL (80-100); MEAN PLATELET VOLUME 11.4 fL (9.2-13.0); MONOCYTES 3.8 %; MONOCYTES ABSOLUTE 0.25 10/3/uL (0.21-1.20); NEUTROPHILS 85.6 %; RBC DISTRIBUTION WIDTH 15.6 % (12.0-16.0); RED CELL COUNT 3.08 10/6/uL (4.7-6.1); WHITE BLOOD CELLS 6.5 10/3/uL (4.5-10.5)
[2016-11-01 01:37] LABS: MANUAL DIFF NO %; PLATELET COUNT 64 10/3/uL (150-400)
[2016-11-01 01:43] LABS: INTERNATIONAL NORMAL RATI 1.6 UNITS (-); PARTIAL THROMBO TIME 34.7 SEC (22.5-37.2); PROTIME (NOT ORD) 18.5 SEC (12.0-14.5)
[2016-11-01 01:51] LABS: ALBUMIN 2.6 G/DL (3.5-5.0); ALKALINE PHOSPHATASE 108 U/L (45-117); BUN (BLOOD UREA NITROGEN) 84 MG/DL (6-23); CALCIUM, SERUM 8.8 MG/DL (8.5-10.4); CHEST PAIN PROFILE TAT 0 Hrs 26 Mins; CHLORIDE, SERUM 99 MMOL/L (96-112); CO2 (CARBON DIOXIDE) 25 MMOL/L (24-34); CREATININE 2.75 MG/DL (0.70-1.30); DIRECT BILIRUBIN 0.7 MG/DL (0.0-0.4); GFR AFRICAN AMERICAN 25 ML/MIN (>=60); GFR NON AFRICAN AMERICAN 22 ML/MIN (>=60); GLUCOSE, SERUM 167 MG/DL (60-99); INDIRECT BILIRUBIN(NOT ORDER) 1.1 MG/DL (0.1-0.9); POTASSIUM, SERUM 5.5 MMOL/L (3.5-5.3); SGOT(AST) 31 U/L (5-40); SGPT(ALT) 32 U/L (5-65); SODIUM, SERUM 135 MMOL/L (135-148); TOTAL BILIRUBIN 1.8 MG/DL (0-1.2); TOTAL PROTEIN 6.2 G/DL (6.0-8.5); TROPONIN I <0.02 NG/ML (<0.05)
[2016-11-01 02:16] LABS: PLATELET ESTIMATE DEC (ADEQUATE)
[2016-11-01 02:17] LABS: RBC MORPHOLOGY NORM (NORMAL)
[2016-11-01] MEDS ORDERED: XIFAXAN550 MG PO (02:27)
[2016-11-01] MEDS ORDERED: ATEN25 PO (02:28)
[2016-11-01] MEDS ORDERED: VITAMIN D1000 UNI1 PO (02:28)
[2016-11-01] MEDS ORDERED: CONSTULOSE PO (02:29)
[2016-11-01] MEDS ORDERED: NEUR600 PO (02:29)
[2016-11-01] MEDS ORDERED: MAGNESIUM 500 MG PO (02:29)
[2016-11-01] MEDS ORDERED: FLAGYL250 MG PO (02:29)
[2016-11-01] MEDS ORDERED: DEMA20 PO (02:30)
[2016-11-01] MEDS ORDERED: VITE PO (02:30)
[2016-11-01] MEDS ORDERED: FLOMAX4 PO (02:30)
[2016-11-01] MEDS ORDERED: PROTONIX PO (02:30)
[2016-11-01 02:43] LABS: ASCORBIC ACID (UR NOT ORDER) NEG (NEG); BILIRUBIN, URINE NEGATIVE (NEG); ER URINALYSIS TAT 0 Hrs 00 Mins; KETONE, URINE NEGATIVE (NEG); LEUKOCYTE ESTERASE(NOT OR NEG (NEG); NITRITE (URINE) NEG (NEG); WBC (NOT ORDERED) (RFLEX) < 1 (0-5)
[2016-11-01 06:32] LABS: BASOPHILS 0 %; EOSINOPHILS 0.2 %; EOSINOPHILS ABSOLUTE 0.01 10/3/uL (0.0-0.53); HEMATOCRIT 26.2 % (40.0-51.0); HEMOGLOBIN 9.2 g/dL (13.6-17.8); IMMATURE GRANULOCYTES 0.2 %; IMMATURE GRANULOCYTES ABSOLUTE 0.01 10/3/uL (0.0-0.11); LYMPHOCYTES 10.3 %; MEAN CORPUS HGB CONC 35.1 g/dL (32.0-36.0); MEAN CORPUSCULAR HEMOGLOB 31.8 pg (26.0-34.0); MEAN CORPUSCULAR VOLUME 90.7 fL (80-100); MEAN PLATELET VOLUME 10.7 fL (9.2-13.0); MONOCYTES 3.3 %; MONOCYTES ABSOLUTE 0.19 10/3/uL (0.21-1.20); NEUTROPHILS ABSOLUTE 4.99 10/3/uL (2.02-8.40); PLATELET COUNT 55 10/3/uL (150-400); RBC DISTRIBUTION WIDTH 15.7 % (12.0-16.0); RED CELL COUNT 2.89 10/6/uL (4.7-6.1); WHITE BLOOD CELLS 5.8 10/3/uL (4.5-10.5)
[2016-11-01 06:40] LABS: MANUAL DIFF NO %
[2016-11-01 06:47] LABS: ALBUMIN 2.5 G/DL (3.5-5.0); BUN (BLOOD UREA NITROGEN) 82 MG/DL (6-23); CALCIUM, SERUM 8.7 MG/DL (8.5-10.4); CHLORIDE, SERUM 101 MMOL/L (96-112); CO2 (CARBON DIOXIDE) 24 MMOL/L (24-34); CREATININE 2.58 MG/DL (0.70-1.30); GFR AFRICAN AMERICAN 27 ML/MIN (>=60); GFR NON AFRICAN AMERICAN 23 ML/MIN (>=60); GLUCOSE, SERUM 156 MG/DL (60-99); PHOSPHORUS, SERUM 3.6 MG/DL (2.5-4.5); POTASSIUM, SERUM 5.2 MMOL/L (3.5-5.3); SODIUM, SERUM 136 MMOL/L (135-148)
[2016-11-01 06:57] LABS: PLATELET ESTIMATE DEC (ADEQUATE)
[2016-11-01 06:58] LABS: OVALOCYTES 1+ (3-10/OIF) (0-2/OIF)
== END 2016-11-01 23:29 | disposition hospice, inpatient (51) | DRG 433 ==
LOC: ER 23:55 → 5NO 11-01 03:31
PROVIDERS: Emergency Medicine; Family Medicine; Internal Medicine
PROC: 0DH673Z Insertion of Infusion Device into Stomach, Via Natural or Artificial Opening (ICD-10-PCS; principal; 2016-11-01)
DX: K70.30 Alcoholic cirrhosis of liver without ascites (principal); N17.9 Acute kidney failure, unspecified; K76.6 Portal hypertension; I85.10 Secondary esophageal varices without bleeding; E11.22 Type 2 diabetes mellitus with diabetic chronic kidney disease; N18.3 Chronic kidney disease, stage 3 (moderate); K70.40 Alcoholic hepatic failure without coma; I12.9 Hypertensive chronic kidney disease with stage 1 through stage 4 chronic kidney disease, or unspecified chronic kidney disease; K42.9 Umbilical hernia without obstruction or gangrene; Z79.84 Long term (current) use of oral hypoglycemic drugs; F10.21 Alcohol dependence, in remission; R33.9 Retention of urine, unspecified; Z51.5 Encounter for palliative care
CPT/HCPCS: 36600; 43752; 70450; 71010; 74176; 80048; 80069; 80076; 81001; 82140; 82962; 83735; 84484; 85025; 85610; 85730; 93005; 99285; A9270-GY; C1769; J0610; J2405; Q9967

== ENCOUNTER 2016-11-01 23:44 | Inpatient (IN) | payer OTHER ==
--- NOTE | ~2016-11-01 | HP ---
History And Physical [place] [address] [facility] [place]. [address] NAME: TALIA VYAS : 41 STATUS : ADM IN [facility]#: [id number] AGE: 76 ADM/REG DATE : 11/01/16 MR#: [id number] REPORT SERV DATE: 11/02/16 DICTATED BY: GEOVANY LEHMAN DATE: 11/02/16 REPORT STATUS : Draft TRANSCRIBED BY: MODL DATE: 11/02/16 DATE OF ADMISSION: 11/01/2016 CHIEF COMPLAINT: Altered mental status. HISTORY OF PRESENT ILLNESS: This is a 76-year-old white gentleman being admitted to the Hospice Service with end-stage liver disease, long history at least eight years of hepatic encephalopathy, on and off, has culminated in the last three weeks of being in the hospital more than out with increasing confusion, disorientation, hepato-nephrotic syndrome that has worsened to the point where the family is requesting comfort measures only. The last admission occurred relatively quickly after the last with no acute preceding symptoms. He is currently in the room confused; disoriented; really not aware of people, place, or time; having increasing swelling. PAST MEDICAL HISTORY: Significant for alcoholic liver disease as well as CKD III, hypertension, anemia, and UTIs. PAST SURGICAL HISTORY: Noncontributory. CURRENT MEDICATIONS: He has been actually taken off all his medications at this point in time. FAMILY HISTORY: Noncontributory. SOCIAL HISTORY: He was residing at home. He worked as a electric truck operator. He did smoke. He did drink. No IV drug use. REVIEW OF SYSTEMS: Unable to obtain secondary to the patient's condition. PHYSICAL EXAMINATION: VITAL SIGNS: Per chart. GENERAL: Ill-appearing, poorly responsive white male, lying quietly in bed. HEENT: Normocephalic and atraumatic. Pupils are equal, round, and reactive to light and accommodation. Mild icterus. NECK: No jugular venous distention. No carotid bruits. CARDIAC: Regular rhythm. No murmurs, gallops, or rubs. Normal S1 and S2. LUNGS: Bilateral breath sounds. Questionable crackles in the bases. ABDOMEN: Soft, obese, mild ascites, mildly tender in all quads. Decreased bowel sounds. EXTREMITIES: Mild edema diffusely. SKIN: Bruising and ecchymosis noted diffusely. PSYCH: Sedated and lethargic. NEURO: Unable to check for neuro exam at this point in time. ASSESSMENT: 1. End-stage hepatic encephalopathy. History And Physical [address] [address] NAME: TALIA VYAS : 41 STATUS : ADM IN PAT#: [id number] AGE: 76 ADM/REG DATE : 11/01/16 MR#: [id number] REPORT SERV DATE: 11/02/16 DICTATED BY: GEOVANY LEHMAN DATE: 11/02/16 REPORT STATUS : Draft TRANSCRIBED BY: STACEY DATE: 11/02/16 2. Chronic kidney disease III. PLAN: At this point in time, comfort measures. Discontinue the NG tube. IV fluids to KVO. Pain medicines and nausea medicines as needed. Scopolamine patch as needed. Expectant management at this point in time. NEVA/STACEY Geovany Lehman MD / [id number] CC: Geovany Lehman MD
--- NOTE | ~2016-11-01 | DS ---
Discharge Summary [place] [address] [facility] [place]. [address] NAME: TALIA VYAS : 41 STATUS : DIS IN PAT#: [id number] AGE: 76 ADM/REG DATE : 11/01/16 MR#: [id number] REPORT SERV DATE: 11/14/16 DICTATED BY: GEOVANY LEHMAN DATE: 11/13/16 REPORT STATUS : Draft TRANSCRIBED BY: STACEY DATE: 11/13/16 Data Collection from hospitalization DISCHARGE DIAGNOSES: 1. End-stage hepatic encephalopathy. 2. Hypertension. 3. History of alcoholic liver disease. 4. Stage III chronic kidney disease. 5. Anemia. 6. Former smoker. CONSULTATIONS: None. PROCEDURES PERFORMED: None. MEDICATIONS: As per [facility]. CONDITION AT DISCHARGE: Stable. DISPOSITION: The patient was discharged home to be followed by [facility]. HOSPITAL COURSE: This is a 76-year-old man who was being admitted to the Hospice Service with end-stage liver disease and a long history of at least eight years of hepatic encephalopathy, on and off, which had culminated in the last three weeks of being in the hospital more than out of the hospital with increasing confusion, disorientation, hepato- nephrotic syndrome that had worsened to the point where the family was requesting comfort measures only. His last admission occurred relatively quickly after the last with no acute preceding symptoms. He was currently confused and disoriented. He was admitted to the hospital at this time for further evaluation and treatment. Upon admission, the patient was felt to have end-stage hepatic encephalopathy and stage III chronic kidney disease. Comfort measures were being provided. The NG tube was discontinued. IV fluids were placed KVO. Pain and nausea medications would be provided as needed. A scopolamine patch was placed. On 11/03/2016, he was resting quietly. His lungs were clear. He did develop some increased agitation. Ativan and Dilaudid were continued. Benadryl would be given for itching. He had rested well. On 11/06/2016, discharge instructions were given. Due to his stable condition, he was discharged home to be followed by [facility] with the above-stated instructions. Information collected by: Savi Espana I submit the above information as my discharge summary. MARYSE/STACEY Geovany Lehman MD / [id number] Discharge Summary [address] [place]. [address] NAME: TALIA VYAS : 42 STATUS : DIS IN PAT#: [id number] AGE: 76 ADM/REG DATE : 11/01/16 MR#: [id number] REPORT SERV DATE: 11/14/16 DICTATED BY: GEOVANY LEHMAN DATE: 11/13/16 REPORT STATUS : Draft TRANSCRIBED BY: STACEY DATE: 11/13/16 CC: MD Meme Sahni D.O. [facility]
[~2016-11-01 23:44] MED LIST changes: +VITAMIN D1000 UNI1 PO
== END 2016-11-06 17:36 | disposition hospice, home (50) | DRG 434 ==
LOC: 5NO 23:44
DX: K70.40 Alcoholic hepatic failure without coma (principal); K70.9 Alcoholic liver disease, unspecified; N18.3 Chronic kidney disease, stage 3 (moderate); I12.9 Hypertensive chronic kidney disease with stage 1 through stage 4 chronic kidney disease, or unspecified chronic kidney disease; F10.21 Alcohol dependence, in remission; Z87.440 Personal history of urinary (tract) infections; Z51.5 Encounter for palliative care
CPT/HCPCS: A9270-GY; J1170; J1200